=== PATIENT | female | born 1970 | race Caucasian/White ===

== ENCOUNTER 2023-10-23 09:35 | Day surgery (SDC) | payer BC ==
[2023-10-23] MEDS: Lactated Ringers 1,000 ML IV SCH (10:13)
[2023-10-23] MEDS ORDERED: propofoL 50 ML ONE (11:44)
[2023-10-23] MEDS ORDERED: dexmedeTOMIDine HCl 200 MCG/2 ML SDV ONE (12:40)
[2023-10-23] MEDS ORDERED: Water For Injection, Sterile 20 ML ONE (12:40)
[2023-10-23] MEDS ORDERED: Lactated Ringers 1,000 ML IV SCH (13:00)
== END 2023-10-23 13:40 | disposition home or self-care (01) ==
LOC: MW.SDS 09:35 → MERGE 11:15 → MW.SDS 13:40
PROVIDERS: ATTEND Surgery
DX: D12.8 Benign neoplasm of rectum (principal); K29.50 Unspecified chronic gastritis without bleeding; K57.30 Diverticulosis of large intestine without perforation or abscess without bleeding; E78.00 Pure hypercholesterolemia, unspecified; Z79.899 Other long term (current) drug therapy; Z88.2 Allergy status to sulfonamides; Z88.8 Allergy status to other drugs, medicaments and biological substances; Z91.018 Allergy to other foods
CPT/HCPCS: 43239; 45380; J2704; J7120; 00813; J3490